=== PATIENT | female | born 1945 | race Two or more races ===

== ENCOUNTER 2020-08-20 07:41 | Outpatient (CLI) | payer OTHER | END 2020-08-20 08:01 | disposition home or self-care (01) | LOC: LAB 07:41 | PROVIDERS: ATTEND Orthopaedic Surgery | DX: E56.1 Deficiency of vitamin K (principal); E55.9 Vitamin D deficiency, unspecified; M85.88 Other specified disorders of bone density and structure, other site ==

== ENCOUNTER 2022-05-12 10:38 | Outpatient (CLI) | payer OTHER | END 2022-05-12 10:40 | disposition home or self-care (01) | LOC: RAD 10:38 | PROVIDERS: ATTEND Orthopaedic Surgery | DX: M25.561 Pain in right knee (principal) ==

== ENCOUNTER 2022-07-10 06:43 | Outpatient (CLI) | payer OTHER | END 2022-07-10 07:01 | disposition home or self-care (01) | LOC: LAB 06:43 | PROVIDERS: ATTEND Orthopaedic Surgery | DX: D64.9 Anemia, unspecified (principal); E88.9 Metabolic disorder, unspecified; D68.8 Other specified coagulation defects; N39.0 Urinary tract infection, site not specified; A49.02 Methicillin resistant Staphylococcus aureus infection, unspecified site; E11.9 Type 2 diabetes mellitus without complications; Z76.89 Persons encountering health services in other specified circumstances; I49.9 Cardiac arrhythmia, unspecified; I10 Essential (primary) hypertension ==

== ENCOUNTER 2022-07-22 10:00 | Inpatient (IN) | payer OTHER ==
[~2022-07-22] VITALS: Ht 160 cm; Wt 67.6 kg
[2022-07-23] MEDS ORDERED: LEVOTHYROXINE25 MCG PO (08:21)
[2022-07-23] MEDS ORDERED: ZYRTEC10 M3 PO (08:21)
[2022-07-23] MEDS ORDERED: ATORVASTATIN CA10 MG PO (08:21)
[2022-07-23] MEDS ORDERED: COZAAR25 MG PO (08:21)
[2022-07-27] MEDS ORDERED: GABAPENTIN100 M2 (09:35)
[2022-07-27] MEDS ORDERED: RESTORIL30 MG (09:35)
[2022-07-27] MEDS ORDERED: CETIRIZINE HCL10 MG (09:35)
[2022-07-27] MEDS ORDERED: SYNTHROID50 MCG (09:35)
[2022-07-27] MEDS ORDERED: NORVASC2.5 MG (09:36)
[2022-07-27] MEDS ORDERED: ATORVASTATIN CA20 MG (09:36)
[2022-07-27] MEDS ORDERED: LOSARTAN POTASS50 MG (09:36)
== END 2022-07-30 15:15 | DRG 470 ==
LOC: O/R 07-27 06:19 → SURG 07-27 06:19
PROVIDERS: ADMIT Orthopaedic Surgery; ATTEND Orthopaedic Surgery
PROC: 0QR807Z Replacement of Right Femoral Shaft with Autologous Tissue Substitute, Open Approach (ICD-10-PCS; 2022-07-27)
PROC: 0SRC0J9 Replacement of Right Knee Joint with Synthetic Substitute, Cemented, Open Approach (ICD-10-PCS; principal; 2022-07-27 11:00)
DX: M17.11 Unilateral primary osteoarthritis, right knee (principal); I10 Essential (primary) hypertension

== ENCOUNTER 2022-12-18 07:44 | Outpatient (CLI) | payer OTHER ==
[~2022-12-18 07:44] MED LIST: ATORVASTATIN CA10 MG PO; ATORVASTATIN CA20 MG; CETIRIZINE HCL10 MG; COZAAR25 MG PO; GABAPENTIN100 M2; LEVOTHYROXINE25 MCG PO; LOSARTAN POTASS50 MG; NORVASC2.5 MG; RESTORIL30 MG; SYNTHROID50 MCG; ZYRTEC10 M3 PO
== END 2022-12-18 07:46 | disposition home or self-care (01) ==
LOC: LAB 07:44
PROVIDERS: ATTEND Orthopaedic Surgery
DX: M85.9 Disorder of bone density and structure, unspecified (principal); E83.42 Hypomagnesemia; E56.1 Deficiency of vitamin K